=== PATIENT | female | born 1960 | race Caucasian/White ===

== ENCOUNTER 2023-07-12 08:34 | Outpatient (CLI) | payer MEDICARE, SELFPAY ==
--- NOTE | 2023-08-01 18:03 | WPDHOMESLEEP ---
Sleep Study - Home Unattended Date of Study: 07/12/23 Ordering Provider: Rahul Hatfield MD Interpreting Provider: Elvie Iyer, DO Home Sleep Study Type: Watch PAT Height: 1.7 m Weight: 83.007 kg Body Mass Index: 28.6 Neck Circumference (inches): 14.5 [place]: 0 Reason for Sleep Study Snoring, difficulty falling asleep Sleep History The patient is a 63-year-old female with hypothyroidism and hyperlipidemia that had a sleep study ordered by her primary care physician for evaluation of sleep apnea. The patient denies awakening from sleep short of breath. She denies awakening at night with heartburn, belching or cough. She frequently snores and is frequently loud enough that others complain. She denies having trouble sleeping when she has a cold. She denies waking up gasping for air throughout the night. She denies having breathing problems at night observed by herself or others. She denies sweating excessively at night. She denies having heart palpitations or irregular heartbeats during the night. He denies falling asleep during the day. She denies falling asleep while driving. She denies sleep paralysis, cataplexy and hypnagogic / hypnopompic hallucinations. She denies having trouble at school or work due to sleepiness. He denies feeling afraid of going to sleep. She denies having nightmares. She occasionally remembers her dreams. She frequently has thoughts racing through her mind. She denies feeling sad or depressed. She rarely has anxiety. She denies having muscular tension. She denies noticing parts of her body jerk. She denies kicking during the night. She denies having crawling and aching feelings in her legs and denies having leg pain during the night. She denies grinding her teeth during sleep and denies awakening with morning jaw pain. She denies being bothered by pain during the day and denies being awakened by pain during the night. She denies waking up feeling stiff in the morning. She denies waking up with sore or achy muscles. She denies waking up with pain in the neck, spine or other joints. The patient goes to bed between 1-2 a.m. on both weekdays and weekends. It takes her 30 minutes to fall asleep. She is unsure how many times she wakes up throughout the night. She wakes up between 8-9 a.m. on both weekdays and weekends. She typically gets 6-7 hours of sleep per night. She will stay in bed for 5-10 minutes after waking up in the morning. She currently lives with are spouse. She denies consuming any caffeinated beverages within 2 hours of bedtime. She denies engaging in physical exercise before bedtime. She will watch television before falling asleep. She denies taking naps in the afternoon or the evening. She consumes 1-2 cups of coffee per day. She consumes 2-3 alcoholic beverages on the weekends. She denies tobacco and recreational drug use. FOR[facility]LY [facility], LATER [facility] Past Medical History Medical History Abnormal fasting glucose (01/22/22) fasting glucose 111 with hemoglobin A1c 5.5 on 01/22/2022. Fasting glucose 104 with hemoglobin A1c 5.3 on 01/20/2023. BMI 28.0-28.9,adult BMI 29.0-29.9,adult Cyst of left breast 0.6 x 0.6 cm cystic lesion left central breast on ultrasound 10/26/2019. Hypersomnia Mixed hyperlipidemia Total cholesterol 208, triglycerides 126, HDL 54, LDL 130 on 01/22/2022. Total cholesterol 195, HDL 55, triglycerides 91, LDL 117 with ratio 3.5 on 01/20/2023. Normal echocardiogram (~05/2011) Osteoporosis screening Overweight (BMI 25.0-29.9) Screening mammogram, encounter for Mammogram 10/14/2022 was negative. Seasonal allergic rhinitis Surgical History Surgical History H/O colonoscopy (~06/2017) H/O colonoscopy (~05/2011) Hx of hysterectomy (~09/2006) Family History Family History Father Hypertension
[2023-08-01 18:05] VITALS: BMI 28.6
== END 2023-07-13 08:39 | disposition home or self-care (01) ==
LOC: ANHCSM 08:35
PROVIDERS: PCP Family Medicine; Visit Provider Family Medicine
DX: G47.10 Hypersomnia, unspecified (principal); G47.33 Obstructive sleep apnea (adult) (pediatric)
CPT/HCPCS: 95800

== ENCOUNTER → 2024-01-03 09:19 | Outpatient (REF) | payer MEDICARE, SELFPAY | LOC: ANHLAB 09:19 | PROVIDERS: PCP Family Medicine; Visit Provider Plastic Surgery | DX: D22.5 Melanocytic nevi of trunk (principal) | CPT/HCPCS: 88305 ==

== ENCOUNTER 2025-02-20 12:29 | Outpatient (CLI) | payer MEDICARE, SELFPAY ==
--- NOTE | ~2025-02-20 | DEXA_ITS ---
Bone Density Report Name: CHRISTIE KHAN Age: 64 Sex: Female Ethnicity: White Date of : 1960 Indication: postmenopausal; screening for osteoporosis; Referring Provider: SILVER JOHNSON Study: Bone densitometry was performed. Exam Date: February 20, 2025 Accession number: [id number] Bone Density: Region BMD T-score Z-score Classification AP Spine(L1-L4) 1.017 -0.3 1.6 Normal Femoral Neck (Left) 0.690 -1.4 0.2 Osteopenia Total Hip (Left) 0.943 0.0 1.3 Normal Femoral Neck (Right) 0.740 -1.0 0.6 Normal Total Hip (Right) 0.925 -0.1 1.2 Normal Total Hip Mean 0.934 -0.1 1.3 Normal World Health Organization criteria for BMD impression classify patients as: Normal (T-score at or above -1.0), Osteopenia (T-score between -1.0 and -2.5), or Osteoporosis (T-score at or below -2.5). 10-year Fracture Risk(1): Major Osteoporotic Fracture 9.0% Hip Fracture 1.0% Reported Risk Factors: [place] (), Neck BMD=0.690, BMI=28.4 (1) FRAX(R) Version 3.08. Fracture probability calculated for an untreated patient. Fracture probability may be lower if the patient has received treatment. Clinical Information Provided by Patient: Patient maximum height was 68.0 Menopause Age: 38 Drinks caffeinated beverages Onset of menses at age 12 Number of children 0 Impression: The patient has low bone mass, based on the Left Femoral Neck T-score. The patient has an estimated ten-year risk of hip fracture of 1% and an estimated ten-year risk of major fracture of 9%, based on the WHO FRAX algorithm. Discussion: BONE DENSITY IS LOW AT ONE OR MORE SKELETAL SITES. This patient's lowest T-score is low at one or more skeletal sites. It meets the World Health Organization's (WHO) criteria for ?low bone mass? (T-score between -1.0 and -2.5). The patient's 10-year risk of fracture as calculated by FRAX is less than the threshold where pharmacological therapy is recommended by the National Osteoporosis Foundation (NOF). However, all treatment decisions require clinical judgment and consideration of individual patient factors, including patient preferences, comorbidities, previous drug use, risk factors not captured in the FRAX model (e.g., frailty, falls, vitamin D deficiency, increased bone turnover, interval significant decline in bone density) and possible under or overestimation of fracture risk by FRAX. The patient should follow a healthful lifestyle (good nutrition with adequate calcium and vitamin D, and appropriate weight-bearing exercise). Follow-Up: Consider repeating this study in 2 to 3 years to reassess this patient's status, or sooner if there is some new clinical indication. Reported by: YANN on 02/20/2025 1:11:00 PM. Reviewed, dictated and finalized at location A.
--- OUTSIDE RECORDS SUMMARY | 2025-02-20 12:35 | XMS_ITS | Referral Summary ---
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 Gender Identity Not on file Sexual Orientation Not on file Plan of Treatment Not on file Procedures Procedure Name Priority Date/Time Associated Diagnosis Comments SCREENING MAMMOGRAM BILATERAL W AMADOR Schedule Routine, Read Routine (OP Routine) 10/17/2024 10:02 AM TMD TEACHER Screening mammogram, encounter for from Last 3 Months or Most Recently Relevant to Health Maintenance Results * Screening Mammogram Bilateral W [place] (10/17/2024 10:02 AM TMD TEACHER) Anatomical Region Laterality Modality Breast Bilateral Mammography Narrative 10/17/2024 11:54 AM TMD TEACHER Mammogram Technique: Bilateral Digital Breast Tomosynthesis, Bilateral C-view 2D Screening mammogram. Views obtained: bilateral craniocaudal and bilateral mediolateral oblique. Computer Aided Detection was performed. Mammogram Findings: The present examination has been compared to prior imaging studies performed at [facility] on 10/05/2021, 10/14/2022 and 10/17/2023. There are scattered areas of fibroglandular density. There is asymmetry in the posterior inner breast on the craniocaudal view of the left breast. This is just medial to a benign appearing small 6:00 oval mass, stable to 2021. There is no suspicious abnormality in the right breast. Impression: Asymmetry in the left breast requires additional evaluation. Diagnostic mammogram and possible ultrasound of the left breast are recommended at this time. OVERALL FINAL ASSESSMENT: BI-RADS CATEGORY 0: Incomplete: Need additional imaging evaluation. Procedure Note Elvie Dumont MD - 10/17/2024 Mammogram Technique: Bilateral Digital Breast Tomosynthesis, Bilateral C-view 2D Screening mammogram. Views obtained: bilateral craniocaudal and bilateral mediolateral oblique. Computer Aided Detection was performed. Mammogram Findings: The present examination has been compared to prior imaging studies performed at [facility] on 10/05/2021, 10/14/2022 and 10/17/2023. There are scattered areas of fibroglandular density. There is asymmetry in the posterior inner breast on the craniocaudalview of the left breast. This is just medial to a benign appearing small 6:00 oval mass, stableto 2021. There is no suspicious abnormality in the right breast. Impression: Asymmetry in the left breast requires additional evaluation. Diagnostic mammogram and possible ultrasound of the left breast are recommended at this time. OVERALL FINAL ASSESSMENT: BI-RADS CATEGORY 0: Incomplete: Need additional imaging evaluation. us Self Screening Mammogram IMG MAMMO PROCEDURES Fi nal Result from Last 3 Months or Most Recently Relevant to Health Maintenance Insurance CHOICE PRF [place] [employer] AETNA MEDICARE GOLD AETNA MEDICARE GOLD Care Teams Senior Production Planner Relationship Specialty Start Date End Date Rahul Hatfield MD [address] [address] PCP - General Family Medicine 10/12/22 Madison Palma NP [address] [address] Nurse Practitioner Obstetrics and Gynecology 10/18/24
--- OUTSIDE RECORDS SUMMARY | 2025-02-20 12:36 | XMS_ITS | Clinical Summary ---
Author Organization [facility] Address [address] [place] [id number] Care Team Providers Care Wood Turning Lathe Operator Name Role Phone Rahul Hatfield MD Primary Care Provider [phone] Madison Palma NP Unavailable [phone] Social History Tobacco Use Types Packs/Day Years Used Date Smoking Tobacco: Never Comments Unknown Sex and Gender Information Value Date Recorded Sex Assigned at Not on file Legal Sex Female 12:16 AM CHECK AIRMAN Gender Identity Not on file Sexual Orientation Not on file Obstetrics History Plan of Treatment Health Maintenance Due Date Last Done Comments Colon Cancer Screening-Colonoscopy 1960 Depression Screening 1960 Fall Risk Assessment 1960 Hepatitis C Screening 1960 Osteoporosis Screening-Bone Density Scan 1960 DTaP/Tdap/Td Vaccine (1 - Tdap) 1969 Hepatitis B Screening 1976 Pneumococcal vaccine 65+ (1 of 1 - PCV) 2008 Zoster Vaccine (1 of 2) 2008 Well Visit 65+ 2023 Influenza Vaccine (Season Ended) 2025 06/15/20 18 Breast Cancer Screening-Mammogram 10/17/2025 10/17/2024, 10/17/2023, 10/14/2022, Additional history exists Procedures Procedure Name Priority Date/Time Associated Diagnosis Comments SCREENING MAMMOGRAM BILATERAL W AMADOR Schedule Routine, Read Routine (OP Routine) 10/17/2024 10:02 AM CHECK AIRMAN Screening mammogram, encounter for from Last 3 Months or Most Recently Relevant to Health Maintenance Results * Screening Mammogram Bilateral W [place] (10/17/2024 10:02 AM CHECK AIRMAN) Anatomical Region Laterality Modality Breast Bilateral Mammography Narrative 10/17/2024 11:54 AM CHECK AIRMAN Mammogram Technique: Bilateral Digital Breast Tomosynthesis, Bilateral C-view 2D Screening mammogram. Views obtained: bilateral craniocaudal and bilateral mediolateral oblique. Computer Aided Detection was performed. Mammogram Findings: The present examination has been compared to prior imaging studies performed at [facility] on 10/05/2021, 10/14/2022 and 10/17/2023. There are [...] compared to prior imaging studies performed at [facility] on 10/05/2021, 10/14/2022 and 10/17/2023. There are [...] Health Maintenance Insurance CHOICE PRF [place]PO [place] [facility] AETNA MEDICARE GOLD AETNA MEDICARE GOLD Care Teams Wood Turning Lathe Operator Relationship Specialty Start Date End Date Rahul Hatfield MD [address] [place] [id number] PCP - General Family Medicine 10/12/22 Madison Palma NP [id number] [address] Nurse Practitioner Obstetrics and Gynecology 10/18/24
== END 2025-02-20 12:30 | disposition home or self-care (01) ==
LOC: ANHIMG 12:34
PROVIDERS: PCP Family Medicine; Visit Provider Family Medicine
DX: Z78.0 Asymptomatic menopausal state (principal); M85.852 Other specified disorders of bone density and structure, left thigh
CPT/HCPCS: 77080